=== PATIENT | female | born 1980 | race Caucasian/White ===

== ENCOUNTER 2022-01-13 19:27 | Emergency (ER) | payer OTHER, SELFPAY ==
--- NOTE | ~2022-01-13 | US_ITS ---
EXAMINATION: ULTRASOUND PELVIC, COMPLETE CLINICAL INFORMATION: Pelvic pain COMPARISON: Pelvic ultrasound 11/07/2013 TECHNIQUE: Transvaginal: Used to better visualize pelvic structures Transabdominal: Not adequate for visualization Spectral Doppler and color Doppler exam was utilized. LMP: 12/17/2021 FINDINGS: UTERUS: Uterus is heterogeneous in echo texture but no discrete mass. The uterine fibroid evident on pelvic ultrasound 11/06/2013 not seen well on today's study. There is a 5 mm cyst adjacent to the endometrium. Uterus measures 11.2 x 7.9 x 7.4 cm. Endometrial stripe measures 1 cm. No fluid in the endometrial cavity. ADNEXA: Ovarian vascularity:Doppler demonstrates both arterial and venous vascular flow in the right and left ovary. No evidence of ovarian torsion. Right Ovary: Corpus luteum cyst in right ovary measuring 2.2 cm. Right ovary measures 3.9 x 2.7 x 1.7 cm. Volume 9.4 mL Left Ovary: 3.9 x 2.5 x 1.8 cm. Volume 9.2 mL Cul-de-sac: Trace fluid in the cul-de-sac. US/US pelvic ovarian doppler IMPRESSION: No acute abnormality ultrasound of pelvis.
--- NOTE | ~2022-01-13 | US_ITS ---
EXAMINATION: ULTRASOUND PELVIC, COMPLETE CLINICAL INFORMATION: Pelvic pain COMPARISON: Pelvic ultrasound 11/07/2013 TECHNIQUE: Transvaginal: Used to better visualize pelvic structures Transabdominal: Not adequate for visualization Spectral Doppler and color Doppler exam was utilized. LMP: 12/17/2021 FINDINGS: UTERUS: Uterus is heterogeneous in echo texture but no discrete mass. The uterine fibroid evident on pelvic ultrasound 11/06/2013 not seen well on today's study. There is a 5 mm cyst adjacent to the endometrium. Uterus measures 11.2 x 7.9 x 7.4 cm. Endometrial stripe measures 1 cm. No fluid in the endometrial cavity. ADNEXA: Ovarian vascularity:Doppler demonstrates both arterial and venous vascular flow in the right and left ovary. No evidence of ovarian torsion. Right Ovary: Corpus luteum cyst in right ovary measuring 2.2 cm. Right ovary measures 3.9 x 2.7 x 1.7 cm. Volume 9.4 mL Left Ovary: 3.9 x 2.5 x 1.8 cm. Volume 9.2 mL Cul-de-sac: Trace fluid in the cul-de-sac. US/US pelvic and transvaginal IMPRESSION: No acute abnormality ultrasound of pelvis.
[2022-01-13 20:31] VITALS: BP 138/96; PULSE 79; RESP 16; TEMP 36.9; O2SAT 98; BMI 20.5
[2022-01-13 20:53] LABS: MANUAL DIFF FLAG NO
[2022-01-13 20:54] LABS: Basophils Absolute Auto 0.1 X10*3/uL (0.0-0.2); Basophils Percent Auto 1.1 % (0-2); Eosinophils Absolute Auto 0.6 X10*3/uL (0.0-0.4); Eosinophils Percent Auto 8.8 % (0-4); Hematocrit 39.3 % (37.0-47.0); Hemoglobin 13.5 g/dl (12.0-16.0); Imm Gran Abs Auto 0.01 X10*3/uL (0.00-0.03); Imm Gran Pct Auto 0.2 % (0.0-0.4); Lymphocytes Percent Auto 44.6 % (20-40); Mean Corpuscular HGB Conc 34.4 g/dl (31.0-35.0); Mean Corpuscular Hemoglobin 31.8 pg (27.0-33.0); Mean Corpuscular Volume 92.7 fL (80.0-98.0); Mean Platelet Volume 9.1 fL (9.4-12.3); Monocytes Absolute Auto 0.5 X10*3/uL (0.1-1.2); Monocytes Percent Auto 7.7 % (2-11); Neutrophils Absolute Auto 2.5 x10*3/uL (2.0-8.3); Neutrophils Percent Auto 37.6 % (45-73); Platelet Count 316 X10*3/uL (160-400); Red Blood Count 4.24 X10*6/uL (4.20-5.50); Red Cell Distribution Width 12.7 % (11.0-16.0); White Blood Count 6.6 X10*3/uL (4.8-10.8)
[2022-01-13 21:02] LABS: Appearance Urine CLEAR; Color Urine STRAW; Glucose Urine UA NEG (NEG); Leukocyte Esterase Urine NEG (NEG); Nitrite Urine NEG (NEG); PH 6.5 (5.0-8.0); Specific Gravity - Urine <= 1.005 (1.005-1.025); Urine Blood NEG (NEG); Urine Ketones NEG (NEG); Urine Protein NEG (NEG-TRACE)
[2022-01-13 21:03] LABS: UPreg QC Valid YES; Urine Pregnancy NEGATIVE (NEGATIVE)
[2022-01-13 21:14] LABS: Alanine Aminotransferase 16 U/L (0-31); Albumin Level 4.5 g/dL (3.5-5.0); Alkaline Phosphatase 64 U/L (39-117); Anion Gap 10 (12-20); Aspartate Amino Transferase 19 U/L (5-31); Bilirubin Total 0.6 mg/dL (0.0-1.0); Blood Urea Nitrogen 14 mg/dL (9-16); Calcium 9.3 mg/dL (8.4-10.2); Carbon Dioxide 26 mmol/L (22-29); Chloride 106 mmol/L (96-108); Creatinine Clr Calc Pharmacy 99.4; Estimated Glomerular Filt Rate > 60; Glucose Random 106 mg/dL (60-115); Potassium 4.1 mmol/L (3.3-5.1); Sodium 138 mmol/L (135-145); Total Protein 6.8 g/dL (6.5-8.0)
[2022-01-13 21:20] LABS: HCG Quantitative 56 mIU/mL
--- NOTE | 2022-01-13 22:57 | ED.FEMALEGU ---
HPI - Female Genitourinary General Chief complaint: Urogenital-Female Stated complaint: Pelvic pain/? Time Seen by Provider: 01/13/22 22:49 Source: patient Mode of arrival: ambulatory Limitations: no limitations History of Present Illness HPI Narrative: 41-year-old female miscarriage is 1 presents to the emergency department with urinary frequency, urgency and pelvic pain patient tells me that this has been going on since January 03. Patient tells me she took an at-home UTI test which showed positive leukocytes, then she went to urgent care where her urine was clear but they did symptomatic treatment with Macrobid 7 days p.o. b.i.d. she finished this course of medications on the . She tells me after finishing the her medication she was still having urinary frequency, urgency and dysuria, therefore she called her PCP who told her that she could not be seen for a while therefore she should go to urgent care, she was seen at urgent care today where they did a urine which was clean and they advised her to come into the emergency department to be evaluated for positive pelvic etiologies, pelvic ultrasound and test. She tells me she continues to have the symptoms and she is also having intermittent pelvic pain/discomfort, worse on the left. Patient tells me she is currently sexually active, trying to become , her last menstrual period was on December 22. She tells me she always gets her period on time. She is not on control. She denies abdominal pain, nausea, vomiting, chest pain, shortness of breath, fevers, chills. MD elicited complaint: UTI Onset (ago): day(s) (10) Female Urogenital Radiation: Suprapubic, LLQ and LRQ Quality of pain: cramping and sharp Consistency: constant Vaginal discharge: none Vaginal bleeding: none Urinary symptoms: Dysuria, Urgency and Frequency Exacerbating factors: none Relieving factors: none Associated symptoms: denies other symptoms Treatment prior to arrival: other (Macrobid) Sexual activity: Yes Possible : unsure if Date of Last Menstrual Period: 12/22/21 Related Data Previous Rx's Medication Instructions Recorded cefuroxime axetil 250 mg tablet 250 mg PO BID 5 days #10 tabs 01/14/22 Allergies Allergy/AdvReac Type Severity Reaction Status Date / Time No Known Allergies Allergy Unverified 04/11/20 17:19 [No Known Allergies*] Review of Systems Review of Systems: Constitutional : No Weight loss, No Fever, No Chills, No Fatigue, No Malaise ENT/Mouth : No sore throat, No Rhinorrhea Eyes: No Eye Pain, No Swelling, No Redness Cardiovascular : No Chest Pain, No SOB, No Dyspnea on Exertion, No Orthopnea, No Edema, No Palpitations Respiratory : No Cough, No Sputum, No Wheezing Gastrointestinal : No Nausea, No Vomiting, No Diarrhea, No Constipation, No abdominal Pain, No Hematochezia, No Melena Genitourinary : + Dysuria, + Urinary Frequency, No Hematuria, Musculoskeletal : No joint pain, No Myalgias, No Joint Swelling Skin : No Skin Lesions, No rash Neuro : No Weakness, No Numbness, No Dizziness, No Headache Psych : No Anxiety/Panic, No Depression All other systems reviewed and are negative Yes all other systems are reviewed and are negative [facility] Past Medical History Date of Last Menstrual Period: 12/22/21 Social History Social History Advance Directives: Yes Advance Directives Information Provided: No Advance Directives on File: No Physical Exam Vital Signs: Vital Signs: Last Vital Signs Temp 98.4 F 01/13/22 20:31 Pulse 79 01/14/22 00:34 Resp 14 01/14/22 00:34 BP 114/80 01/14/22 00:34 Pulse Ox 100 01/14/22 00:34 O2 Del Method 01/14/22 00:34 BMI result Body Mass Index 20.5 Course Reevaluation(s) Reevaluation #1: CBC appears to be urine patient's baseline. No anemia noted. Chemistry with no acute electrolyte abnormalities requiring intervention. Patient's urine is negative, UA without infection however patient is symptomatic therefore she will be sent home on Ceftin 250 mg p.o. b.i.d. x7 days. Patient's beta hCG is 56, patient's last menstrual period was on 12/22/2021, she tells me she is trying to get , not on control, advised her to follow-up with a repeat HCG in 4 days. I advised her to take vitamins and follow-up with OBGYN. Educated her on worrisome signs and symptoms and when to return. At this time she will be discharged home with prompt PCP in OBGYN follow-up Time: 00:36 MDM - Female Genitourinary MDM Narrative Medical decision making narrative: [id number] 41-year-old female presents with urinary frequency, urgency, dysuria and pelvic pain times 10 days worsening. Multiple negative UAs, is treated with Macrobid, no symptomatic improvement. Unsure if she is however tells me she is trying to become . She is not on control. Last menstrual period 12/22/2021 Physical examination benign. No pain with palpation of abdomen however patient tells me she feels pelvic pain. Very low suspicion for appendicitis, cholecystitis, pancreatitis, diverticulitis. Plan at this time is to obtain labs, urine, urine , beta hCG. It obtain a transvaginal ultrasound to rule out ovarian torsion, ovarian cyst and other intrapelvic etiologies. Medical Records Attestation: I reviewed the patient's medical records. Lab Data Attestation: I reviewed the patient's lab results. Result diagrams: 01/13/22 20:48 01/13/22 20:48 Labs: Lab Results 01/13/22 01/13/22 01/13/22 Range/Units 20:48 20:48 20:54 WBC 6.6 (4.8-10.8) X10*3/uL RBC 4.24 (4.20-5.50) X10*6/uL Hgb 13.5 (12.0-16.0) g/dl Hct 39.3 (37.0-47.0) % MCV 92.7 (80.0-98.0) fL MCH 31.8 (27.0-33.0) pg MCHC 34.4 (31.0-35.0) g/dl RDW 12.7 (11.0-16.0) % Plt Count 316 (160-400) X10*3/uL MPV 9.1 L (9.4-12.3) fL Immature Gran % (Auto) 0.2 (0.0-0.4) % Neut % (Auto) 37.6 L (45-73) % Lymph % (Auto) 44.6 H (20-40) % [place] % (Auto) 7.7 (2-11) % Eos % (Auto) 8.8 H (0-4) % Baso % (Auto) 1.1 (0-2) % Lymph # (Auto) 3.0 (1.2-4.9) X10*3/uL [place] # (Auto) 0.5 (0.1-1.2) X10*3/uL Eos # (Auto) 0.6 H (0.0-0.4) X10*3/uL Baso # (Auto) 0.1 (0.0-0.2) X10*3/uL Abs Immat Gran (auto) 0.01 (0.00-0.03) X10*3/uL Absolute Neuts (auto) 2.5 (2.0-8.3) x10*3/uL Absolute Nucleated RBC 0.000 (0.0-0.012) X10*3/uL Nucleated RBC % (auto) 0.0 (0.0-0.2) /100WBC Sodium 138 (135-145) mmol/L Potassium 4.1 (3.3-5.1) mmol/L Chloride 106 (96-108) mmol/L Carbon Dioxide 26 (22-29) mmol/L Anion Gap 10 L (12-20) BUN 14 (9-16) mg/dL Creatinine 0.64 (0.5-1.4) mg/dL Estim Creat Clear Calc 99.4 Estimated GFR > 60 Random Glucose 106 (60-115) mg/dL Calcium 9.3 (8.4-10.2) mg/dL Total Bilirubin 0.6 (0.0-1.0) mg/dL AST 19 (5-31) U/L ALT 16 (0-31) U/L Alkaline Phosphatase 64 (39-117) U/L Total Protein 6.8 (6.5-8.0) g/dL Albumin 4.5 (3.5-5.0) g/dL Beta HCG, Quant 56 mIU/mL Urine Color STRAW Urine Appearance CLEAR Urine pH 6.5 (5.0-8.0) Ur Specific [place] <= 1.005 (1.005-1.025) Urine Protein NEG (NEG-TRACE) MG/DL Urine Glucose (UA) NEG (NEG) MG/DL Urine Ketones NEG (NEG) MG/DL Urine Blood NEG (NEG) Urine Nitrite NEG (NEG) Ur Leukocyte Esterase NEG (NEG) Urine Test (NEGATIVE) 01/13/22 Range/Units 20:54 WBC (4.8-10.8) X10*3/uL RBC (4.20-5.50) X10*6/uL Hgb (12.0-16.0) g/dl Hct (37.0-47.0) % MCV (80.0-98.0) fL MCH (27.0-33.0) pg MCHC (31.0-35.0) g/dl RDW (11.0-16.0) % Plt Count (160-400) X10*3/uL MPV (9.4-12.3) fL Immature Gran % (Auto) (0.0-0.4) % Neut % (Auto) (45-73) % Lymph % (Auto) (20-40) % [place] % (Auto) (2-11) % Eos % (Auto) (0-4) % Baso % (Auto) (0-2) % Lymph # (Auto) (1.2-4.9) X10*3/uL [place] # (Auto) (0.1-1.2) X10*3/uL Eos # (Auto) (0.0-0.4) X10*3/uL Baso # (Auto) (0.0-0.2) X10*3/uL Abs Immat Gran (auto) (0.00-0.03) X10*3/uL Absolute Neuts (auto) (2.0-8.3) x10*3/uL Absolute Nucleated RBC (0.0-0.012) X10*3/uL Nucleated RBC % (auto) (0.0-0.2) /100WBC Sodium (135-145) mmol/L Potassium (3.3-5.1) mmol/L Chloride (96-108) mmol/L Carbon Dioxide (22-29) mmol/L Anion Gap (12-20) BUN (9-16) mg/dL Creatinine (0.5-1.4) mg/dL Estim Creat Clear Calc Estimated GFR Random Glucose (60-115) mg/dL Calcium (8.4-10.2) mg/dL Total Bilirubin (0.0-1.0) mg/dL AST (5-31) U/L ALT (0-31) U/L Alkaline Phosphatase (39-117) U/L Total Protein (6.5-8.0) g/dL Albumin (3.5-5.0) g/dL Beta HCG, Quant mIU/mL Urine Color Urine Appearance Urine pH (5.0-8.0) Ur Specific [place] (1.005-1.025) Urine Protein (NEG-TRACE) MG/DL Urine Glucose (UA) (NEG) MG/DL Urine Ketones (NEG) MG/DL Urine Blood (NEG) Urine Nitrite (NEG) Ur Leukocyte Esterase (NEG) Urine Test NEGATIVE (NEGATIVE) Critical Care Time Critical Care Time Critical Care Time: No Discharge Plan Discharge Clinical Impression: Abdominal pain, Cystitis, Dysuria Patient Disposition: Home, Self-Care Instructions: Dysuria (ED), Abdominal Pain (ED) Additional Instructions: Take your medications as prescribed. If you were prescribed antibiotics today, it is important that you take your medication to their entirety, do not skip any doses, do not finish them early. Follow-up with your primary care provider this week. Return to the emergency department with new or worsening symptoms. Such as fevers, chills, chest pain, shortness of breath, nausea, vomiting, dizziness, headache, vision changes, lethargy, abdominal pain, vaginal bleeding In case of emergency call 911 Your beta hCG was 56. Your urine was negative however may be too soon to show on urine. Please start taking vitamins [id number]. You will need to have your HCG repeated in 4 days. Please return with new or worsening symptoms. I have attached information for an OBGYN doctor. FINDINGS: UTERUS: Uterus is heterogeneous in echo texture but no discrete mass. The uterine fibroid evident on pelvic ultrasound 11/06/2013 not seen well on today's study. There is a 5 mm cyst adjacent to the endometrium. Uterus measures 11.2 x 7.9 x 7.4 cm. Endometrial stripe measures 1 cm. No fluid in the endometrial cavity. ADNEXA: Ovarian vascularity:Doppler demonstrates both arterial and venous vascular flow in the right and left ovary. No evidence of ovarian torsion. Right Ovary: Corpus luteum cyst in right ovary measuring 2.2 cm. Right ovary measures 3.9 x 2.7 x 1.7 cm. Volume 9.4 mL Left Ovary: 3.9 x 2.5 x 1.8 cm. Volume 9.2 mL Cul-de-sac: Trace fluid in the cul-de-sac. US/US pelvic and transvaginal IMPRESSION: No acute abnormality ultrasound of pelvis. Prescriptions: New cefuroxime axetil 250 mg tablet 250 mg PO BID 5 Days Qty: 10 0RF Referrals: Rosalia Morin MD [Primary Care Provider] - 2 days Bryan Fritz MD [Physician] - 1 day Stand Alone Forms: Work/School Release
[2022-01-14 00:34] VITALS: BP 114/80; PULSE 79; RESP 14; O2SAT 100
== END 2022-01-14 00:50 | disposition home or self-care (01) ==
PROVIDERS: Emergency Provider Emergency Medicine Emergency Medical Services; PCP Internal Medicine
DX: R30.0 Dysuria (principal); R10.2 Pelvic and perineal pain; N30.90 Cystitis, unspecified without hematuria; R35.0 Frequency of micturition; Z79.899 Other long term (current) drug therapy
CPT/HCPCS: 36415; 76830; 76856; 80053; 81003; 81025; 84702; 85025; 93975; 99283; 99284

== ENCOUNTER → 2022-09-09 08:32 | Outpatient (BNVA) | payer OTHER, SELFPAY | PROVIDERS: PCP Internal Medicine; Visit Provider Anesthesiology | DX: R07.89 Other chest pain (principal); J45.909 Unspecified asthma, uncomplicated; R42 Dizziness and giddiness; Z91.81 History of falling | CPT/HCPCS: 99202 ==